=== PATIENT | female | born 2005 | race Two or more races ===

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

== ENCOUNTER 2024-01-20 20:25 | Emergency (ER) | payer MEDICAID ==
[~2024-01-20] VITALS: Ht 165.1 cm; Wt 116.3 kg
[~2024-01-20 20:25] MED LIST changes: +AMOX875T3 PO; +IBUP-1456 PO
--- NOTE | 2024-01-20 20:58 | ED.PDOC ---
CRYSTAL SLICER HPI Comments HPI: Poor Historian. 18-year-old female presents to emergency department for three day history of vaginal bleeding/clots with associated nausea and vomiting and lower abdominal discomfort that is nonspecific. Pain is constant. No alleviating or precipitating factors. Last menstrual cycle Was in August. Patient had STD at least two years ago. Denies any current discharge. Patient states that she used a whole box of tampons in the last three days for her bleeding. Past Medcial History: Denies any Past Surgical History: Denies any REVIEW OF SYSTEMS: CONSTITUTIONAL: Denies acute: fever, diaphoresis, chills, HEAD: Denies acute: headache, photophobia Eyes: Denies acute: Double vision, vision loss, eye pain, eye discharge. EARS: Denies acute: tinnitus, hearing loss, ear discharge, ear pain, THROAT: Denies acute: sore throat, swelling, difficulty swallowing , pain with swallowing, change in voice. NECK: Denies acute: neck pain, neck swelling, stiff neck. HEART: Denies acute : chest pain, palpitations, LUNGS: Denies acute: SOB, wheezing, cough, hemoptysis ABDOMEN: Denies acute: , diarrhea, melena , hematemesis, hematochezia SKIN: Denies acute: rash, redness, lesions, itchiness. EXTREMITIES: Denies acute: calf pain, numbness, tingling, weakness, denies pain in extremity. Denies acute: Low back pain. Neuro: Denies acute: focal neurological deficit, motor or sensory focal neurological deficit, tremors, seizure like activity, confusion, dizziness, change in mental status, loss of bowel or bladder function, cauda equina like symptoms. : Denies acute: dysuria, hematuria, flank pain, increase in urinary frequency. PSYCH: Denies acute: hallucination, suicidal ideation, homicidal ideation. FEMALE: Denies acute: foul odor, unusual discharge. PHYSICAL EXAM: General: Mild acute distress, awake and alert. Head: normocephalic, atraumatic. Neck: supple, trachea is midline, no swelling. Throat: Normal phonation. Eyes:, no erythema, no purulent discharge, no proptosis, no icterus. Heart: regular rate, regular rhythm, no significant murmur appreciated. Lungs: no apparent respiratory distress, Able to speak in full sentences. No wheezing, no rhonchi, no crackles. No stridors Clear to auscultation bilaterally. Abdomen: Lower abdomen/pelvic tender to palpation, non distended, soft, no guarding, no rebound, + bowel sounds. Morbidly obese Neuro: Awake, Alert, oriented to name, self, situation, follows commands GCS=15. Speech is normal. Skin: no petechia, no purpura, no cyanosis, non-pale, not jaundice. Lower extremities: --no - Pitting edema no deformity, no focal swelling, no calf TTP. Makes eye contact. moves all four extremities. Face: no apparent facial droop. Ambulating in the ED independently. Time Seen by MD: 20:33 Reviewed Notes: Nurses Notes, Allergies Allergies: Coded Allergies: NO KNOWN ALLERGIES (Unverified , 06/15/23) Home Meds Active Scripts Ibuprofen (Ibuprofen) 800 Mg Tab, 1 TAB PO TID, #24 TAB Prov:DESTINY LORENZO 12/17/23 Amoxicillin Trihydrate (Amoxicillin) 875 Mg Tab, 1 TAB PO BID, #20 TAB Prov:DESTINY LORENZO 12/17/23 Acetaminophen W/ Codeine (Tylenol W/Cod #3) 1 Tab Tb, 1 TAB PO QIDP, #10 TAB 0 Refills Prov:HIRAM MELVIN 06/15/23 Amoxicillin & Pot Clavulanate (Amoxicillin/Potassium Cla) 875 Mg Tab, 1 TAB PO BID for 7 Days, #14 TAB 0 Refills Prov:HIRAM MELVIN 06/15/23 Information Source: Patient Past Medical History PAST MEDICAL HISTORY: Denies Surgical History: Denies all surgeries TEST CONDUCTOR History: No Pertinent TEST CONDUCTOR History Family History Family History: Reviewed,noncontributory to illness Social History Smoker: Non-Smoker Alcohol: Denies ETOH Use Drugs: Denies Drug Use Lives In: Home Was a procedure done? Was a procedure done?: No Differential Diagnosis (TEST CONDUCTOR) Vaginal Bleeding: Other (Differential diagnosis includes but not limited to DU B, menorrhea, metromenorrhagia, neoplasm, coagulopathy,, trauma, miscarriage, placenta previa, placental abruption, ) X-Ray, Labs, Meds, VS Vital Signs Date Time Temp Pulse Resp B/P (MAP) Pulse Ox O2 Delivery O2 Flow Rate FiO2 01/20/24 21:55 98.8 98 20 119/69 (86) 100 98.8 01/20/24 20:45 97.8 106 18 134/84 (101) 98 Lab Test 01/21/24 00:48 01/20/24 21:07 01/20/24 20:43 Range/Units Hemoglobin 13.4 14.8 12.2-16.2 g/dL Hematocrit 41.1 42.8 36.0-46.0 % White Blood Count 5.9 4.4-10.8 10^3/uL Red Blood Count 4.81 4.0-5.20 10^6/uL Mean Corpuscular Volume 88.9 80.0-100.0 fL Mean Corpuscular Hemoglobin 30.7 28.0-32.0 pg Mean Corpuscular Hemoglobin Concent 34.5 32.0-36.0 g/dL Red Cell Distribution Width 14.2 11.8-14.3 % Platelet Count 328 140-450 10^3/uL Mean Platelet Volume 7.7 6.9-10.8 fL Neutrophils (%) (Auto) 66.3 37.0-80.0 % Lymphocytes (%) (Auto) 22.9 10.0-50.0 % Monocytes (%) (Auto) 8.4 0.0-12.0 % Eosinophils (%) (Auto) 2.0 0.0-7.0 % Basophils (%) (Auto) 0.4 0.0-2.0 % Neutrophils # (Auto) 3.9 1.6-8.6 10 ^3/uL Lymphocytes # (Auto) 1.4 0.4-5.4 10 ^3/uL Monocytes # (Auto) 0.5 0-1.3 10 ^3/uL Eosinophils # (Auto) 0.1 0-0.8 10 ^3/uL Basophils # (Auto) 0 0-0.2 10 ^3/uL Nucleated Red Blood Cells 0.0 % Sodium Level 141 136-145 mmol/L Potassium Level 3.7 3.5-5.1 mmol/L Chloride Level 111 H 98-107 mmol/L Carbon Dioxide Level 25 20-31 mmol/L Anion Gap 5 5-15 Blood Urea Nitrogen 7 L 9-23 mg/dL Creatinine 0.80 0.550-1.02 mg/dL Glomerular Filtration Rate Calc 109 >90 mL/min BUN/Creatinine Ratio 8.8 L 10.0-20.0 Serum Glucose 79 74-106 mg/dL Lactic Acid Level 1.3 0.4-2.0 mmol/L Calcium Level 9.1 8.7-10.4 mg/dL Total Bilirubin 0.4 0.2-1.0 mg/dL Aspartate Amino Transferase (AST) 95 H 13-40 U/L Alanine Aminotransferase (ALT) 129 H 7-40 U/L Alkaline Phosphatase 42 L 46-116 U/L Total Protein 7.4 5.7-8.2 g/dL Albumin 4.4 3.2-4.8 g/dL Lipase 49 12-53 U/L Beta HCG, Quantitative 0.4 L 1.5-4.2 mIU/mL Urine Color Light-yellow Yellow Urine Clarity Clear Clear Urine pH 7.0 5.0-9.0 Urine Specific [place] 1.020 1.001-1.035 Urine Protein Negative Negative Urine Ketones Negative Negative Urine Blood 1+ H Negative /uL Urine Nitrite Negative Negative Urine Bilirubin Negative Negative Urine Urobilinogen 2 H Negative mg/dL Urine Leukocyte Esterase Negative Negative /uL Urine RBC 1 0 - 4 /hpf Urine WBC 2 0 - 5 /hpf Urine Squamous Epithelial Cells Few <5 /hpf Urine Bacteria None seen None Seen /hpf Urine Glucose Normal Normal mg/dL Chlamydia trachomatis (BARRETT) Pending Neisseria gonorrhoeae (BARRETT) Pending [place] [id number] Ph: [phone] DIAGNOSTIC IMAGING Diagnostic Imaging Report : [id number] Signed PATIENT: JORGE CRISOSTOMO ACCT: [id number] UNIT: [id number] : 2005 LOC: ER ROOM / BED: / AGE / SEX: 18 / F ADM STATUS: REG ER SERVICE 51 ORDERING PHYSICIAN: NICOLE BLUE DO PROCEDURE(s): PELUS - PELVIC REASON: VAG BLEED, ABD PAIN ORDER NUMBER(s): [id number], ACCESSION NUMBER(s): [id number] INDICATION: Vaginal bleeding TECHNIQUE: Multiple real-time grayscale transabdominal sonographic images along with color and duplex Doppler of the uterus and ovaries were obtained. COMPARISON: None FINDINGS: The uterus measures 5.9 x 2.6 x 2.7 cm. The endometrial stripe measures 0.4 cm. No free fluid in the pelvis. The right ovary measures 2.7 x 1.7 x 2.6 cm. The left ovary measures 2.4 x 1.5 x 2.3 cm. Multiple bilateral subcentimeter follicular cysts. Subsequent color and duplex Doppler interrogation of the ovaries demonstrated symmetric vascular flow to both ovaries, though this does not exclude the p ossibility of torsion due to the dual blood supply. IMPRESSION: No sonographic evidence of acute pelvic abnormalities. ATED BY: HELENA DOW DO DICTATED DATE/TIME: 01/21/2410 SIGNED BY: HELENA DOW DO SIGNED DATE/TIME: 01/21/2410 CC: Time of 1ST Reevaluation: 00:10 (As of this minute, ultrasound report is still pending) Reevaluation 1ST: Unchanged Time of 2ND Reevaluation: 01:30 Reevaluation 2ND: Improved Patient Education/Counseling: Diagnosis, Treatment Family Education/Counseling: No Family Present Comments Patient presented with the above HPI.--vaginal bleed----workup was initiated. patient was found with the above mentioned diagnosis. Patient was given: Rocephin, fluids, hydrocodone, Zofran Patient ED course and VS have been stabilized. Patient has been reassessed in the ED and remained in a stable condition. Pertinent incidental findings were discussed with the patient and/or family. Patient/family voices understanding and is agreeable with plan. Patient has been observed in the ED adequate length of time to insure improvement/stability. patient was discharged home in a stable condition. All the reports of any imaging studies that were ordered by myself were reviewed by myself. Departure 1 Departure Time of Disposition: 01:36 Impression: Primary Impression: Pelvic pain Additional Impressions: Dysfunctional uterine bleeding Elevated LFTs Disposition: 01 HOME / SELF CARE / HOMELESS Condition: Stable Additional Instructions: Additional discharge instructions: You MUST follow-up with your primary care/family doctor in 1 to 2 days. If you are unable to see your primary care/family doctor, please return to our emergency room for re-assessment and re-evaluation in 1 to 2 days. Return to the emergency room here in our facility or to the nearest ER [facility] if your symptoms change or worsen. CONSULTATIONS: you MUST Follow-up for consultation as soon as possible with: [facility] doctor in 1-2 days. Please call for appointment. You MUST call the consultants office yourself to make an appointment. You may need to arrange that through your insurance and/or your primary/family doctor. If you are unable to see the marketing operations consultant in 1 to 2 days, you must return to our emergency room (or any other ER of your choice) for re-assessment and re- evaluation. Adequate fluid hydration. Take daily iron supplements. Repeat CBC in 48-72 hours. Pelvic rest Below is a copy of your radiological report for follow up: [place] [id number] Ph: [phone] DIAGNOSTIC IMAGING Diagnostic Imaging Report : [id number] Signed PATIENT: JORGE CRISOSTOMO ACCT: [id number] UNIT: [id number] : 2005 LOC: ER ROOM / BED: / AGE / SEX: 18 / F ADM STATUS: REG ER SERVICE 51 ORDERING PHYSICIAN: NICOLE BLUE DO PROCEDURE(s): PELUS - PELVIC REASON: VAG BLEED, ABD PAIN ORDER NUMBER(s): [id number], ACCESSION NUMBER(s): [id number] INDICATION: Vaginal bleeding TECHNIQUE: Multiple real-time grayscale transabdominal sonographic images along with color and duplex Doppler of the uterus and ovaries were obtained. COMPARISON: None FINDINGS: The uterus measures 5.9 x 2.6 x 2.7 cm. The endometrial stripe measures 0.4 cm. No free fluid in the pelvis. The right ovary measures 2.7 x 1.7 x 2.6 cm. The left ovary measures 2.4 x 1.5 x 2.3 cm. Multiple bilateral subcentimeter follicular cysts. Subsequent color and duplex Doppler interrogation of the ovaries demonstrated symmetric vascular flow to both ovaries, though this does not exclude the possibility of torsion due to the dual blood supply. IMPRESSION: No sonographic evidence of acute pelvic abnormalities. ATED BY: HELENA DOW DO DICTATED DATE/TIME: 01/21/2410 SIGNED BY: HELENA DOW DO SIGNED DATE/TIME: 01/21/24 0011 CC: Discharged With: Self Critical Care Note Critical Care Time?: No NICOLE BLUE DO Jan 20, 2024 20:58
[2024-01-20 21:25] LABS: Urine Bacteria None Seen /hpf (None Seen)
[2024-01-20 21:34] LABS: Basophils # (auto) 0 10 ^3/uL (0-0.2); Basophils % (auto) 0.4 % (0.0-2.0); Eosinophils # (auto) 0.1 10 ^3/uL (0-0.8); Hematocrit 42.8 % (36.0-46.0); Hemoglobin 14.8 g/dL (12.2-16.2); Lymphocytes # (auto) 1.4 10 ^3/uL (0.4-5.4); Lymphocytes % (auto) 22.9 % (10.0-50.0); Mean Corpuscular Hemoglobin 30.7 pg (28.0-32.0); Mean Corpuscular Hgb Conc. 34.5 g/dL (32.0-36.0); Mean Corpuscular Volume 88.9 fL (80.0-100.0); Monocytes # (auto) 0.5 10 ^3/uL (0-1.3); Monocytes % (auto) 8.4 % (0.0-12.0); Neutrophils # (auto) 3.9 10 ^3/uL (1.6-8.6); Neutrophils % (auto) 66.3 % (37.0-80.0); Platelet Count (auto) 328 10^3/uL (140-450); Red Blood Cells 4.81 10^6/uL (4.0-5.20); Red Cell Distribution Width 14.2 % (11.8-14.3); White Blood Cell 5.9 10^3/uL (4.4-10.8)
[2024-01-20 21:51] LABS: Alanine Aminotransferase 129 U/L (7-40); Alkaline Phosphatase 42 U/L (46-116); Anion Gap 5 (5-15); BUN/Creatinine Ratio 8.8 (10.0-20.0); Blood Urea Nitrogen 7 mg/dL (9-23); Calcium 9.1 mg/dL (8.7-10.4); Carbon Dioxide 25 mmol/L (20-31); Chloride 111 mmol/L (98-107); Glucose 79 mg/dL (74-106); Lipase 49 U/L (12-53); Potassium 3.7 mmol/L (3.5-5.1); Sodium 141 mmol/L (136-145)
[2024-01-20 21:52] LABS: Albumin 4.4 g/dL (3.2-4.8); Aspartate Aminotransferase 95 U/L (13-40); Bilirubin, Total 0.4 mg/dL (0.2-1.0); Total Protein 7.4 g/dL (5.7-8.2)
[2024-01-20 21:55] VITALS: BP 119/69; PULSE 98; RESP 20; TEMP 98.8; O2SAT 100
[2024-01-20 21:55] LABS: Urine Blood 1+ /uL (Negative); Urine Clarity Clear (Clear); Urine Color Light-Yellow (Yellow); Urine Protein, UAD Negative (Negative); Urine Urobilinogen 2 mg/dL (Negative); Urine WBC 2 /hpf (0 - 5)
[2024-01-20] MEDS: SODIUM CHLORIDE 0.9% 1,000 ML IV ONE (22:55)
[2024-01-20] MEDS: ONDANSETRON HCL 4 MG/2 ML VIAL IV ONE (22:58)
[2024-01-20] MEDS: HYDROcodone-ACET 5/325MG TAB PO ONE (23:39)
--- NOTE | 2024-01-21 00:14 | DVH ---
INDICATION: Vaginal bleeding TECHNIQUE: Multiple real-time grayscale transabdominal sonographic images along with color and duplex Doppler of the uterus and ovaries were obtained. COMPARISON: None FINDINGS: The uterus measures 5.9 x 2.6 x 2.7 cm. The endometrial stripe measures 0.4 cm. No free flu id in the pelvis. The right ovary measures 2.7 x 1.7 x 2.6 cm. The left ovary measures 2.4 x 1.5 x 2.3 cm. Multiple bilateral subcentimeter follicular cysts. Subsequent color and duplex Doppler interrogation of the ovaries demonstrated symmetric vascular flow to both ovaries, though this does not exclude the possibility of torsion due to the dual blood suppl y. IMPRESSION: No sonographic evidence of acute pelvic abnormalities.
[2024-01-21 01:14] LABS: Hematocrit 41.1 % (36.0-46.0); Hemoglobin 13.4 g/dL (12.2-16.2)
[2024-01-21] MEDS: cefTRIAXone 1GM/50ML D5W 50 ML IV ONE (02:09)
[2024-01-23 04:07] LABS: Chlamydia Trachomatis, NAA Negative (Negative); Neisseria gonorrhoeae, NAA Negative (Negative)
== END 2024-01-21 03:16 | disposition home or self-care (01) ==
LOC: ER 20:25
DX: N93.8 Other specified abnormal uterine and vaginal bleeding (principal); R10.2 Pelvic and perineal pain; Z79.1 Long term (current) use of non-steroidal anti-inflammatories (NSAID); R79.89 Other specified abnormal findings of blood chemistry
CPT/HCPCS: 36415; 76830; 76856; 80053; 81001; 83605; 83690; 84702; 85014; 85018; 85025; 86850; 86900; 86901; 87491; 87591; 96361; 96365; 96375; 99285; J0696; J2405; J7030

== ENCOUNTER 2024-05-28 19:14 | Emergency (ER) | payer MEDICAID ==
[~2024-05-28] VITALS: Ht 165.1 cm; Wt 118.8 kg
[2024-05-28 20:49] LABS: Urine Bacteria FEW /hpf (None Seen); Urine Blood 1+ /uL (Negative); Urine Clarity Clear (Clear); Urine Color Light-Yellow (Yellow); Urine Protein, UAD Negative (Negative); Urine Specific Gravity 1.009 (1.001-1.035); Urine Squamous Epithelial Cell FEW /hpf (<5); Urine Urobilinogen Normal (Negative); Urine WBC < 1 /HPF (0-5); Urine pH 6.5 (5.0-9.0)
[2024-05-28 21:12] LABS: COVID19 ANTIGEN SOFIA FIA NEGATIVE (NEGATIVE); Rapid Influenza A Negative (Negative); Rapid Influenza B Negative (Negative)
[2024-05-28 23:05] VITALS: BP 118/57; PULSE 91; RESP 18; TEMP 98.8; O2SAT 99
--- NOTE | 2024-05-28 23:11 | ED.PDOC ---
SOB-HPI Chief Complaint: Flu like Time Seen by MD: 19:52 Primary Care Provider: UNKNOWN Reviewed notes: Nurses Notes, Medications, Allergies Information Source: Patient Mode of Arrival: Ambulatory Past Medical History PAST MEDICAL HISTORY: Denies Surgical History: Denies all surgeries DBA MANAGER History: No Pertinent DBA MANAGER History Family History Family History: Reviewed,noncontributory to illness Social History Smoker: Non-Smoker Alcohol: Denies ETOH Use Drugs: Denies Drug Use Lives In: Home X-Ray, Labs, Meds, VS Vital Signs Date Time Temp Pulse Resp B/P (MAP) Pulse Ox O2 Delivery O2 Flow Rate FiO2 05/28/24 20:04 98.1 92 18 124/67 (86) 96 Lab Test 05/28/24 20:25 05/28/24 20:00 Range/Units Influenza Type A Antigen Negative Negative Influenza Type B Antigen Negative Negative SARS-CoV-2 Antigen (Rapid) Negative NEGATIVE Urine Color Light-yellow Yellow Urine Clarity Clear Clear Urine pH 6.5 5.0-9.0 Urine Specific [place] 1.009 1.001-1.035 Urine Protein Negative Negative Urine Ketones Negative Negative Urine Blood 1+ H Negative /uL Urine Nitrite Negative Negative Urine Bilirubin Negative Negative Urine Urobilinogen Normal Negative mg/dL Urine Leukocyte Esterase Negative Negative /uL Urine RBC 2 0 - 4 /hpf Urine Microscopic WBC < 1 0-5 /HPF Urine Squamous Epithelial Cells Few <5 /hpf Urine Bacteria Few H None Seen /hpf Urine Glucose Normal Normal mg/dL Urine Test Negative Negative Time of 1ST Reevaluation: 23:10 Reevaluation 1ST: Improved Patient Education/Counseling: Diagnosis, Treatment, Prognosis, Need For Follow Up Family Education/Counseling: No Family Present Departure 1 Departure Time of Disposition: 23:10 Impression: Primary Impression: Upper respiratory infection Qualified Codes: J06.9 - Acute upper respiratory infection, unspecified Disposition: 01 HOME / SELF CARE / HOMELESS Condition: Stable e-Prescriptions Methylprednisolone (Medrol Dosepak) 4 Mg Clem 4 MG PO UD for 6 Days, #21 TAB UAD Prov: BRADLY REDMOND 05/28/24 Azithromycin (Azithromycin) 250 Mg Tab 250 MG PO DAILY MDD 500 for 5 Days, #6 TAB 0 Refills 2 TABLETS ORALLY ON DAY ONE, THEN 1 TABLET ORALLY DAILY FOR 4 DAYS Prov: BRADLY REDMOND 05/28/24 Discharged With: Self Critical Care Note Critical Care Time?: No Stability Stability form required: BRADLY Leone May 28, 2024 23:11
[2024-05-28] MEDS ORDERED: AZIT-43 PO (23:15)
[2024-05-28] MEDS ORDERED: METH4PAK PO (23:15)
== END 2024-05-28 23:53 | disposition home or self-care (01) ==
LOC: ER 19:14
DX: J06.9 Acute upper respiratory infection, unspecified (principal); Z20.822 Contact with and (suspected) exposure to COVID-19
CPT/HCPCS: 36415; 81001; 81025; 87426; 87804

== ENCOUNTER 2024-08-12 18:23 | Emergency (ER) | payer MEDICAID ==
[~2024-08-12] VITALS: Ht 167.6 cm; Wt 118.5 kg
[~2024-08-12 18:23] MED LIST changes: +AZIT-43 PO
[2024-08-12 19:18] LABS: Basophils # (auto) 0 10 ^3/uL (0-0.2); Basophils % (auto) 0.2 % (0.0-2.0); Eosinophils # (auto) 0.1 10 ^3/uL (0-0.8); Eosinophils % (auto) 1.9 % (0.0-7.0); Hematocrit 41.9 % (36.0-46.0); Hemoglobin 14.3 g/dL (12.2-16.2); Lymphocytes # (auto) 1.7 10 ^3/uL (0.4-5.4); Mean Corpuscular Hemoglobin 29.8 pg (28.0-32.0); Mean Corpuscular Volume 87.7 fL (80.0-100.0); Monocytes # (auto) 0.2 10 ^3/uL (0-1.3); Monocytes % (auto) 2.8 % (0.0-12.0); Neutrophils # (auto) 4.4 10 ^3/uL (1.6-8.6); Neutrophils % (auto) 68.1 % (37.0-80.0); Nucleated Red Blood Cells % 0.1 %; Platelet Count (auto) 368 10^3/uL (140-450); Red Blood Cells 4.78 10^6/uL (4.0-5.20); Red Cell Distribution Width 15.7 % (11.8-14.3); White Blood Cell 6.4 10^3/uL (4.4-10.8)
[2024-08-12 19:26] LABS: Anion Gap 10 (5-15); Carbon Dioxide 23 mmol/L (20-31); Potassium 3.9 mmol/L (3.5-5.1); Sodium 140 mmol/L (136-145)
[2024-08-12 19:27] LABS: Calcium 9.2 mg/dL (8.7-10.4)
[2024-08-12 19:32] LABS: BUN/Creatinine Ratio 10.4 (10.0-20.0); Glucose 90 mg/dL (74-106)
[2024-08-12 19:33] LABS: Urine Bacteria FEW /hpf (None Seen); Urine Blood Negative /uL (Negative); Urine Clarity Turbid (Clear); Urine Color Yellow (Yellow); Urine Mucus FEW (None Seen); Urine Protein, UAD Negative (Negative); Urine Specific Gravity 1.021 (1.001-1.035); Urine Squamous Epithelial Cell FEW /hpf (<5); Urine Urobilinogen Normal (Negative); Urine WBC 6 /HPF (0-5)
[2024-08-12 19:34] LABS: Blood Urea Nitrogen 8 mg/dL (9-23); Chloride 107 mmol/L (98-107)
[2024-08-12 19:42] LABS: Cannabinoid Screen, Urine Neg (NEGATIVE); Cocaine Screen, Urine Pos (NEGATIVE)
[2024-08-12 19:43] LABS: Amphetamine Screen, Urine Neg (NEGATIVE)
[2024-08-12 19:47] LABS: Barbiturate Scree,Urine Neg (NEGATIVE); Benzodiazephine Screen, Urine Neg (NEGATIVE); Opiate Scree,Urine Neg (NEGATIVE); Phencyclidine Screen, Urine Neg (NEGATIVE)
[2024-08-12] MEDS ORDERED: IBUP-1455 PO (20:20)
--- NOTE | 2024-08-12 20:21 | ED.PDOC ---
Musculoskeletal HPI Comments This patient is a morbidly obese 18-year-old female who arrives to the ED today for evaluation of bilateral lower extremity tingling and numbness as well as hand tingling for the past few days. Patient denies any history of neuropathy or impingement concerns. Patient states she does utilize RANGEL inhalant as an illicit drug as well as other drugs. Patient states she has not used any illicit drugs in several days. Vital signs were stable on arrival. Chief Complaint: Lower Extremity Time Seen by MD: 18:41 Primary Care Provider: UNKNOWN Reviewed Notes: Nurses Notes Allergies: Coded Allergies: NO KNOWN ALLERGIES (Unverified , 06/15/23) Home Meds Active Scripts Azithromycin (Azithromycin) 250 Mg Tab, 250 MG PO DAILY MDD 500 for 5 Days, #6 TAB 0 Refills 2 TABLETS ORALLY ON DAY ONE, THEN 1 TABLET ORALLY DAILY FOR 4 DAYS Prov:BRADLY REDMOND 05/28/24 Ibuprofen (Ibuprofen) 800 Mg Tab, 1 TAB PO TID, #24 TAB Prov:DESTINY LORENZO 12/17/23 Amoxicillin Trihydrate (Amoxicillin) 875 Mg Tab, 1 TAB PO BID, #20 TAB Prov:DESTINY LORENZO 12/17/23 Acetaminophen W/ Codeine (Tylenol W/Cod #3) 1 Tab Tb, 1 TAB PO QIDP, #10 TAB 0 Refills Prov:HIRAM MELVIN 06/15/23 Amoxicillin & Pot Clavulanate (Amoxicillin/Potassium Cla) 875 Mg Tab, 1 TAB PO BID for 7 Days, #14 TAB 0 Refills Prov:HIRAM MELVIN 06/15/23 Information Source: Patient, Friend Mode of Arrival: Ambulatory Location: Bilateral Extremity Location: Hand, Leg Timing: Days Prehospital treatment: None Severity: Mild Able to Move Extremity: Yes Bear Weight: Fully Pain: None Hand Dominance: Right Mechanism: Spontaneous Circumstances: Spontaneous Onset of Symptoms: Spontaneous DVT Risk Factors: NONE Past Medical History PAST MEDICAL HISTORY: Denies Surgical History: Denies all surgeries POT HOLDER BINDER History: No Pertinent POT HOLDER BINDER History Family History Family History: Reviewed,noncontributory to illness Social History Smoker: Non-Smoker Alcohol: Denies ETOH Use Drugs: Other (RANGEL) Lives In: Home Constitutional: reports: weakness; denies: chills, diaphoresis, fatigue, fever, malaise, sweats, others EENTM: denies: blurred vision, double vision, ear bleeding, ear discharge, ear drainage, ear pain, ear ringing, eye pain, eye redness, hearing loss, mouth pain, mouth swelling, nasal discharge, nose bleeding, nose congestion, nose pain, photophobia, tearing, throat pain, throat swelling, voice changes, others Respiratory: denies: cough, hemoptysis, orthopnea, SOB at rest, shortness of breath, SOB with excertion, stridor, wheezing, others Cardiovascular: denies: chest pain, dizzy spells, diaphoresis, Dyspnea on exertion, edema, irregular heart beat, left arm pain, lightheadedness, p alpitations, PND, syncope, others Gastrointestinal: denies: abdomen distended, abdominal pain, blood streaked bowels, constipated, diarrhea, dysphagia, difficulty swallowing, hematemesis, melena, nausea, poor appetite, poor fluid intake, rectal bleeding, rectal pain, vomiting, others Genitourinary: denies: abnormal vagina bleeding, burning, dyspareunia, dysuria, flank pain, frequency, hematuria, incontinence, pain, , vagina discharge, urgency, others Neurological: denies: dizziness, fainting, headache, left sided numbness, left sided weakness, numbness, paresthesia, pre-existing deficit, right sided numbness, right sided weakness, seizure, speech problems, tingling, tremors, weakness, others Musculoskeletal: reports: others (Bilateral leg and bilateral hand tingling); denies: back pain, gout, joint pain, joint swelling, muscle pain, muscle stiffness, neck pain Integumetry: denies: bruises, change in color, change in hair/nails, dryness, laceration, lesions, lumps, rash, wounds, others Allergic/Immunocompromised: denies: Difficulty Healing, Frequent Infections, Hives, Itching, others Hematologic/Lymphatic: denies: anemia, blood clots, easy bleeding, easy bruising, swollen glands, others Endocrine: denies: excessive hunger, excessive sweating, excessive thirst, excessive urination, flushing, intolerance to cold, intolerance to heat, unexplained weight gain, unexplained weight loss, others Psychiatric: denies: anxiety, bipolar disorder, depression, hopeless, panic disorder, schizophrenia, sleepless, suicidal, others Physical Exam General Appearance: Mild Distress (Patient was in mild distress due to concerns related to her complaints.), Obese HEENT: Normal ENT Inspection, Pharynx Normal, TMs Normal Neck: Full Range of Motion, Non-Tender, Normal, Normal Inspection Respiratory: Chest Non-Tender, Lungs Clear, No Accessory Muscle Use, No Respiratory Distress, Normal Breath Sounds Cardiovascular: No Edema, No JVD, No Murmur, No Gallop, Normal Peripheral Pulses, Regular Rate/Rhythm Breast Exam: Deferred Gastrointestinal: No Organomegaly, Non Tender, No Pulsatile Mass, Normal Bowel Sounds, Soft Genitalia: Deferred Pelvic: Deferred Rectal: Deferred Extremities: Other (And bilateral upper extremities were unremarkable evaluation. No signs of trauma. No edema or ecchymosis. Full range of motion displayed.) Neurologic: Alert, No Motor Deficits, Normal Affect, Normal Mood, No Sensory Deficits Cerebellar Function: Normal Reflexes: Normal Skin: Dry, Normal Color, Warm Lymphatic: No Adenopathy Was a procedure done? Was a procedure done?: No Differential Diagnosis EXT Differential Diagnosis: Other (Sepsis, electrolyte abnormality, illicit drug use, neuropathy) X-Ray, Labs, Meds, VS Vital Signs Date Time Temp Pulse Resp B/P (MAP) Pulse Ox O2 Delivery O2 Flow Rate FiO2 08/12/24 18:40 98.3 95 16 122/67 (85) 98 98.3 Lab Test 08/12/24 19:01 08/12/24 18:46 Range/Units White Blood Count 6.4 4.4-10.8 10^3/uL Red Blood Count 4.78 4.0-5.20 10^6/uL Hemoglobin 14.3 12.2-16.2 g/dL Hematocrit 41.9 36.0-46.0 % Mean Corpuscular Volume 87.7 80.0-100.0 fL Mean Corpuscular Hemoglobin 29.8 28.0-32.0 pg Mean Corpuscular Hemoglobin Concent 34.0 32.0-36.0 g/dL Red Cell Distribution Width 15.7 H 11.8-14.3 % Platelet Count 368 140-450 10^3/uL Mean Platelet Volume 7.3 6.9-10.8 fL Neutrophils (%) (Auto) 68.1 37.0-80.0 % Lymphocytes (%) (Auto) 27.0 10.0-50.0 % Monocytes (%) (Auto) 2.8 0.0-12.0 % Eosinophils (%) (Auto) 1.9 0.0-7.0 % Basophils (%) (Auto) 0.2 0.0-2.0 % Neutrophils # (Auto) 4.4 1.6-8.6 10 ^3/uL Lymphocytes # (Auto) 1.7 0.4-5.4 10 ^3/uL Monocytes # (Auto) 0.2 0-1.3 10 ^3/uL Eosinophils # (Auto) 0.1 0-0.8 10 ^3/uL Basophils # (Auto) 0 0-0.2 10 ^3/uL Nucleated Red Blood Cells 0.1 % Sodium Level 140 136-145 mmol/L Potassium Level 3.9 3.5-5.1 mmol/L Chloride Level 107 98-107 mmol/L Carbon Dioxide Level 23 20-31 mmol/L Anion Gap 10 5-15 Blood Urea Nitrogen 8 L 9-23 mg/dL Creatinine 0.77 0.550-1.02 mg/dL Glomerular Filtration Rate Calc 114 >90 mL/min BUN/Creatinine Ratio 10.4 10.0-20.0 Serum Glucose 90 74-106 mg/dL Calcium Level 9.2 8.7-10.4 mg/dL Urine Color Yellow Yellow Urine Clarity Turbid H Clear Urine pH 5.0 5.0-9.0 Urine Specific [place] 1.021 1.001-1.035 Urine Protein Negative Negative Urine Ketones Negative Negative Urine Blood Negative Negative /uL Urine Nitrite Negative Negative Urine Bilirubin Negative Negative Urine Urobilinogen Normal Negative mg/dL Urine Leukocyte Esterase Trace Negative /uL Urine RBC 1 0 - 4 /hpf Urine Microscopic WBC 6 H 0-5 /HPF Urine Squamous Epithelial Cells Few <5 /hpf Urine Bacteria Few H None Seen /hpf Urine Mucus Few None Seen Urine Glucose Normal Normal mg/dL Urine Opiates Screen Neg NEGATIVE Urine Fentanyl Screen Neg NEGATIVE Urine Barbiturates Screen Neg NEGATIVE Urine Phencyclidine Screen Neg NEGATIVE Urine Amphetamines Screen Neg NEGATIVE Urine Benzodiazepines Screen Neg NEGATIVE Urine Cocaine Screen Pos NEGATIVE Urine Cannabinoids Screen Neg NEGATIVE X-Ray, Labs, Meds, VS Comment All studies performed the ED were evaluated by me personally. Serum studies were unremarkable for any systemic concerns. Urinalysis was unremarkable while tox screen revealed cocaine use. Patient may be having some symptoms related to illicit drug use. Advised patient hydrate well and practice good nutrition for the next few weeks. Time of 1ST Reevaluation: 20:19 Reevaluation 1ST: Improved Consultation: PCP Patient Education/Counseling: Diagnosis, Treatment Family Education/Counseling: Diagnosis, Treatment Departure 1 Departure Time of Disposition: 20:19 Impression: Primary Impression: Peripheral neuropathy Disposition: HOME / SELF CARE / HOMELESS Condition: Stable Additional Instructions: Advised patient utilize Tylenol and or Motrin as needed for discomfort relief. Patient should cease all illicit drug use immediately and follow up with a support groups such as narcotics anonymous. e-Prescriptions Ibuprofen Micronized (Ibuprofen) 800 Mg Tab 800 MG PO Q8HP PRN, #20 TAB Prov: BRIDGETTE OSLON PAC 08/12/24 Discharged With: Self, Friend Critical Care Note Critical Care Time?: No Stability Stability form required: No Heart Score Heart Score: Heart Score Response (Comments) Value History N/A 0 EKG N/A 0 Age N/A 0 Risk Factors N/A 0 Troponin N/A 0 Total 0 BRIDGETTE OLSON PAC August 12, 2024 20:21
[2024-08-12 21:30] VITALS: BP 104/63; PULSE 104; RESP 18; TEMP 98.1; O2SAT 99
== END 2024-08-12 21:48 | disposition home or self-care (01) ==
LOC: ER 18:23
DX: G62.9 Polyneuropathy, unspecified (principal); Z79.899 Other long term (current) drug therapy
CPT/HCPCS: 36415; 80048; 80307; 81001; 85025